=== PATIENT | male | born 1980 | race Two or more races ===

== ENCOUNTER 2025-04-29 14:54 | Emergency (ER) | payer MEDICAID, SELFPAY ==
[2025-04-29 14:55] VITALS: BMI 24.4
[2025-04-29 15:01] VITALS: BP 147/93; PULSE 97; RESP 20; TEMP 36.8; O2SAT 96
[2025-04-29] MEDS: LIDOCAINE HCL 1% 20 ML VIAL INFL (16:21)
--- NOTE | 2025-04-29 16:23 | PD.EDWOUND ---
ED Wound/Laceration-RME/HPI General Chief Complaint: Wound/Laceration Stated Complaint: I NEED STITCHES ON MY UPPER LIP Time Seen by Provider: 04/29/25 15:00 Arrival date/time: 04/29/25 14:54 RME / HPI RME / HPI narrative: 48-year-old patient presents emergency department complaint of laceration to left inner and outer upper lip that he sustained when he accidentally hit himself with a metal pipe at home while he was working on a project. Patient denies head trauma. He states his last tetanus was a year ago. He denies a history of diabetes. Related Data Previous Rx's ?Medication ?Instructions ?Recorded amoxicillin 500 mg-potassium 1 tab PO BID 7 days #14 tabs 04/29/25 clavulanate 125 mg tablet (Augmentin) hydrocodone 5 mg-acetaminophen 325 1 tab PO BID PRN pain #7 tabs 04/29/25 mg tablet Allergies Allergy/AdvReac Type Severity Reaction Status Date / Time No Known Allergies Allergy Verified 04/29/25 14:59 Review of Systems Review of Systems Systems Reviewed: All systems reviewed, normal except as documented Constitutional Constitutional: Reports system reviewed and no additional complaints, except as documented ENT Ears, Nose, Mouth, and Throat: Reports mouth pain (laceration to left inner and outer lip) Cardiovascular Cardiovascular: Reports system reviewed and no additional complaints, except as documented Respiratory Respiratory: Reports system reviewed and no additional complaints, except as documented Genitourinary Genitourinary: Reports system reviewed and no additional complaints, except as documented Neurologic Neurologic: Reports system reviewed and no additional complaints, except as documented ED Exam General General appearance: Present alert and in no apparent distress Head Head exam: Present atraumatic and normocephalic Eye Eye exam: Present normal appearance and PERRL ENT ENT exam: Present normal exam and normal oropharynx Expanded ENT Exam Mouth exam: Present laceration Respiratory Respiratory exam: Present normal lung sounds bilaterally Cardiovascular Cardiovascular exam: Present regular rate Neurological Exam Neurological exam: Present alert and oriented X3 Psychiatric Psychiatric exam: Present normal affect Course Quality Measures none Orders Category Date Time Status Set Up Suture Tray STAT Care 04/29/25 15:10 Active Wound Care NOW Care 04/29/25 15:10 Active Amoxicillin/Pot Clav [Augmentin] Med 04/29/25 16:23 Discontinued 500 mg PO X1 ONE HYDROcodone*/APAP 5/325 [[place] 5/325] Med 04/29/25 16:23 Discontinued 1 tab PO X1 ONE Lidocaine 1% 20 ml [Xylocaine 1% 20 ML] Med 04/29/25 15:10 Discontinued 20 ml INFL X1 ONE Vital Signs Vital signs: Vital Signs Temperature 98.3 F 04/29/25 15:01 Pulse Rate 97 04/29/25 15:01 Respiratory Rate 20 04/29/25 15:01 Blood Pressure 147/93 H 04/29/25 15:01 Pulse Oximetry (%) 96 04/29/25 15:01 Oxygen Delivery Method Room Air 04/29/25 15:01 PROCEDURES: Laceration Laceration 1: Site: face and lip Side (If applicable): left Size (cm): 5 Description: linear Depth: simple, single layer Local Anesthetic: lidocaine 1% Amount of anesthesia used (mL): 10 Pre-repair: wound explored and irrigated extensively Skin layer closed with: nylon Suture size (cm): 4-0 Number of sutures: 8 Technique: simple, interrupted Subcutaneous layer closed with: vicryl Wound / Laceration MDM Narrative MDM Narrative:: Sutures placed over laceration site patient tolerated procedure well patient will be DC'd home with oral antibiotic given laceration noted to inner upper left lip/buccal area. Patient data External records reviewed:: None Clinical information provided by:: patient Social determinants that could affect healthcare access:: none Patient has the following chronic illnesses:: na How is presenting disease/condition affected by chronic disease/condition?: no chronic disease Evaluation data The following diagnostics were reviewed and interpreted by me:: other (specify) (na) Lab and/or radiology exams considered but not ordered:: na Interpretation Summary: na Medications / Prescriptions Medications or Prescriptions considered but not ordered:: meds considered and ordered Medication administrations:: Medication Administration History Discontinued Medications Hydrocodone Bitart/Acetaminophen (Hydrocodone/Apap 5/325 Tablet) 1 tab PO X1 ONE Stop: 04/29/25 16:24 Last Admin: 04/29/25 16:52 Dose: 1 tab Documented By: CONSUELO Amoxicillin/Clavulanate Potassium (Amoxicillin/Pot Clav 500 Mg Tablet) 500 mg PO X1 ONE Stop: 04/29/25 16:24 Last Admin: 04/29/25 16:52 Dose: 500 mg Documented By: CONSUELO Lidocaine HCl (Lidocaine Hcl 1% 20 Ml Vial) 20 ml INFL X1 ONE Stop: 04/29/25 15:11 Last Admin: 04/29/25 16:21 Dose: 20 ml Documented By: per above Consultations Consultation(s) initiated? (list below): No Diagnosis Wound Differential Diagnosis: laceration Most likely diagnosis given after review of the tests above:: lip/ mouth laceration Admission Indicated Admission indicated?: not indicated Explain why admission is indicated or not indicated:: NA Admission Request Was there a request for admission?: No Disposition Plan Disposition Plan: Discharge Discharge Attestation Discharge Attestation: The patient and all family members were given an opportunity to ask questions and understood the discharge instructions. Discharge instructions specifically effects, indications for sooner follow up or return to the emergency department, and the expected course of current diagnosis. Patient condition: Stable Discharge Plan Plan Patient Disposition: HOME (Self Care) Prescriptions/Referrals Prescriptions/Med Rec: New amoxicillin-pot clavulanate [Augmentin] 500-125 mg tablet 1 tab PO BID 7 Days Qty: 14 0RF hydrocodone-acetaminophen 5-325 mg tablet 1 tab PO BID MDD 3 PRN (Reason: pain) Qty: 7 0RF Problem List Clinical Impression: Laceration, Laceration of lip Patient/Caregiver Discharge Instructions Print Language: Georgian Stand Alone Forms: Edith Award Info., Patient Portal Info Letter
[2025-04-29] MEDS: AMOXICILLIN/POT CLAV 500 MG TABLET PO (16:52)
[2025-04-29] MEDS: HYDROcodone/APAP 5/325 TABLET 1 TAB PO (16:52)
== END 2025-04-29 17:03 | disposition home or self-care (01) ==
PROVIDERS: Emergency Provider Emergency Medicine
DX: S01.511A Laceration without foreign body of lip, initial encounter (principal); W22.8XXA Striking against or struck by other objects, initial encounter; Y92.009 Unspecified place in unspecified non-institutional (private) residence as the place of occurrence of the external cause
CPT/HCPCS: 12013; 99282; J3490; A9270